=== PATIENT | female | born 1975 | race Two or more races ===

== ENCOUNTER 2025-07-10 13:25 | Inpatient (IN) | payer MEDICAID, OTHER ==
[~2025-07-10] VITALS: Ht 167.6 cm; Wt 111.2 kg
--- NOTE | 2025-07-10 13:39 | ECG ---
[facility] Test Date: 2025-07-10 Test Time: 13:34:21 Pat Name: CADENCE LIM Department: ED Room: 0246 Gender: F Hand Umbrella Tipper: Sathya : 1975 Requested By: DANY PEREZ Order Number: [id number] Reading MD: Rodolfo Ortega Measurements Intervals Perkins Rate: 83 P: 54 TN: 142 QRS: 31 QRSD: 136 T: 13 QT: 406 QTc: 477 Interpretive Statements Sinus rhythm Right bundle branch block Electronically Signed On 07-11-2025 18:23:25 PDT by Rodolfo Ortega Please click the below link to view image of tracing.
[2025-07-10 14:49] LABS: Hematocrit 49.2 % (36.0-46.0); Hemoglobin 16.4 g/dL (12.2-16.2); Mean Corpuscular Hemoglobin 31.1 pg (28.0-32.0); Mean Corpuscular Volume 93.5 fL (80.0-100.0); Nucleated Red Blood Cells % 0.1 %
[2025-07-10 14:59] LABS: Chloride 107 mmol/L (98-107); Potassium 4.5 mmol/L (3.5-5.1)
[2025-07-10 15:00] LABS: Anion Gap 11 (5-15); Calcium 9.9 mg/dL (8.7-10.4); Carbon Dioxide 28 mmol/L (20-31); Sodium 146 mmol/L (136-145)
[2025-07-10 15:05] LABS: BUN/Creatinine Ratio 9.9 (10.0-20.0); Blood Urea Nitrogen 12 mg/dL (9-23)
--- NOTE | 2025-07-10 15:13 | ED.PDOC ---
HPI Comments 50 y/o F, with no prior cardiac history presents to the ED for CC of chest pain. 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 Patient endorses, having associated symptoms of shortness of breath with nausea and vomiting. Patient comments, "I feel like the pill went down the wrong pipe". Patient denies headache, palpitations, dizziness, fatigue, or weakness. No other symptoms or modifying factors present at this time. 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 Family History Family History: Unknown Social History Smoker: Non-Smoker Alcohol: Denies ETOH Use Drugs: Denies Drug Use Lives In: Home Constitutional: denies: chills, diaphoresis, fatigue, fever, malaise, sweats, weakness, others EENTM: denies: blurred vision, double vision, ear bleeding, ear discharge, ear drainage, ear pain, ear ringing, eye pain, eye redness, hearing loss, mouth pain, mouth swelling, nasal discharge, nose bleeding, nose congestion, nose pain, photophobia, tearing, throat pain, throat swelling, voice changes, others Respiratory: reports: shortness of breath; denies: cough, hemoptysis, orthopnea, SOB at rest, SOB with excertion, stridor, wheezing, others Cardiovascular: reports: chest pain; denies: dizzy spells, diaphoresis, Dyspnea on exertion, edema, irregular heart beat, left arm pain, lightheadedness, palpitations, PND, syncope, others Gastrointestinal: reports: nausea, vomiting; denies: abdomen distended, abdominal pain, blood streaked bowels, constipated, diarrhea, dysphagia, difficulty swallowing, hematemesis, melena, poor appetite, poor fluid intake, rectal bleeding, rectal pain, others Genitourinary: denies: abnormal vagina bleeding, burning, dyspareunia, dysuria, flank pain, frequency, hematuria, incontinence, pain, , vagina discharge, urgency, others Neurological: denies: dizziness, fainting, headache, left sided numbness, left sided weakness, numbness, paresthesia, pre-existing deficit, right sided numbness, right sided weakness, seizure, speech problems, tingling, tremors, weakness, others Musculoskeletal: denies: back pain, gout, joint pain, joint swelling, muscle pain, muscle stiffness, neck pain, others Integumetry: denies: bruises, change in color, change in hair/nails, dryness, laceration, lesions, lumps, rash, wounds, others Allergic/Immunocompromised: denies: Difficulty Healing, Frequent Infections, Hives, Itching, others Hematologic/Lymphatic: denies: anemia, blood clots, easy bleeding, easy bruising, swollen glands, others Endocrine: denies: excessive hunger, excessive sweating, excessive thirst, excessive urination, flushing, intolerance to cold, intolerance to heat, unexplained weight gain, unexplained weight loss, others Psychiatric: denies: anxiety, bipolar disorder, depression, hopeless, panic disorder, schizophrenia, sleepless, suicidal, others All Other Systems: Reviewed and Negative Physical Exam General Appearance: Moderate Distress HEENT: Normal ENT Inspection, Pharynx Normal, TMs Normal Neck: Full Range of Motion, Non-Tender, Normal, Normal Inspection Respiratory: Chest Non-Tender, Lungs Clear, No Accessory Muscle Use, No Respiratory Distress, Normal Breath Sounds Cardiovascular: No Edema, No JVD, No Murmur, No Gallop, Normal Peripheral Pulses, Regular Rate/Rhythm Breast Exam: Deferred Gastrointestinal: No Organomegaly, Non Tender, No Pulsatile Mass, Normal Bowel Sounds, Soft Genitalia: Deferred Pelvic: Deferred Rectal: Deferred Extremities: No calf tenderness, Normal capillary refill, Normal inspection, Normal range of motion, Non-tender, No pedal edema Musculoskeletal : Apperance: Normal Neurologic: Alert, dish maker II-XII nml as Tested, No Motor Deficits, Normal Affect, Normal Mood, No Sensory Deficits Cerebellar Function: Normal Reflexes: Normal Skin: Dry, Normal Color, Warm Peripheral Pulses: 3+ Radial (R), 3+ Radial (L) Lymphatic: No Adenopathy Was a procedure done? Was a procedure done?: No CP Differential Dx Differential Diagnosis: A-fib, A-Flutter, Angina, Anxiety / Panic Attack, Atrial Dysrhythmia, Electrolyte Disorder Differential Diagnosis: Angina, Chest Wall Pain, Costochondritis, Esophageal reflux/spasm, Gastritis X-Ray, Labs, Meds, VS Vital Signs Date Time Temp Pulse Resp B/P (MAP) Pulse Ox O2 Delivery O2 Flow Rate FiO2 07/10/25 13:34 83 07/10/25 13:30 98.4 87 18 103/68 92 98.4 Lab Test 07/10/25 15:57 07/10/25 14:24 Range/Units Troponin I High Sensitivity < 3 L < 3 L </=34 ng/L White Blood Count 8.3 4.4-10.8 10^3/uL Red Blood Count 5.27 H 4.0-5.20 10^6/uL Hemoglobin 16.4 H 12.2-16.2 g/dL Hematocrit 49.2 H 36.0-46.0 % Mean Corpuscular Volume 93.5 80.0-100.0 fL Mean Corpuscular Hemoglobin 31.1 28.0-32.0 pg Mean Corpuscular Hemoglobin Concent 33.3 32.0-36.0 g/dL Red Cell Distribution Width 14.6 H 11.8-14.3 % Platelet Count 346 140-450 10^3/uL Mean Platelet Volume 8.3 6.9-10.8 fL Neutrophils (%) (Auto) 61.2 37.0-80.0 % Lymphocytes (%) (Auto) 27.7 10.0-50.0 % Monocytes (%) (Auto) 7.3 0.0-12.0 % Eosinophils (%) (Auto) 2.7 0.0-7.0 % Basophils (%) (Auto) 1.1 0.0-2.0 % Neutrophils # (Auto) 5.1 1.6-8.6 10 ^3/uL Lymphocytes # (Auto) 2.3 0.4-5.4 10 ^3/uL Monocytes # (Auto) 0.6 0-1.3 10 ^3/uL Eosinophils # (Auto) 0.2 0-0.8 10 ^3/uL Basophils # (Auto) 0.1 0-0.2 10 ^3/uL Nucleated Red Blood Cells 0.1 % Sodium Level 146 H 136-145 mmol/L Potassium Level 4.5 3.5-5.1 mmol/L Chloride Level 107 98-107 mmol/L Carbon Dioxide Level 28 20-31 mmol/L Anion Gap 11 5-15 Blood Urea Nitrogen 12 9-23 mg/dL Creatinine 1.21 H 0.550-1.02 mg/dL Glomerular Filtration Rate Calc 55 >90 mL/min BUN/Creatinine Ratio 9.9 L 10.0-20.0 Serum Glucose 157 H 74-106 mg/dL Calcium Level 9.9 8.7-10.4 mg/dL Patient alert. No sign of distress. Vitals stable. Blood sugar elevated. Complaining of chest pain. Sodium level elevated. Possibly esophagitis after swallowing a pill. Establish intravenous access. Was given fluids. EKG reviewed does not show any acute changes. Cardiac marker within normal limits. Blood pressure on the low side. Explained to the patient. Continue monitoring. Time of 1ST Reevaluation: 15:30 Reevaluation 1ST: Unchanged Time of 2ND Reevaluation: 17:14 Reevaluation 2ND: Improved Patient Education/Counseling: Diagnosis, Treatment Family Education/Counseling: No Family Present SEPSIS Sepsis Screen Date sepsis recognized/suspect: Jul 10, 2025 Time Sepsis recognized/suspect: 1334 Recent Procedure: No On Antibiotic Therapy: No Respiratory Rate >20: No Heart Rate >90: No Temp<36 C (96.8 F) or >38.3 C: No SBP <90 or MAP <65 mmHG: No New Acute Mental Status Change: No Is the patient on CPAP, BIPAP,: No Physician Orders Electrocardigram (07/10/25 14:38) Electrocardigram (07/10/25 16:38) Urinalysis (07/10/25 14:14) Vital Signs Date Time Temp Pulse Resp B/P (MAP) Pulse Ox O2 Delivery O2 Flow Rate FiO2 07/10/25 13:34 83 07/10/25 13:30 98.4 87 18 103/68 92 98.4 Laboratory Tests Test 07/10/25 14:24 White Blood Count 8.3 10^3/uL (4.4-10.8) Departure 1 Departure Time of Disposition: 17:15 Impression: Primary Impression: Hypotension Qualified Codes: I95.9 - Hypotension, unspecified Additional Impressions: Hypernatremia Dehydration Chest pain of unknown etiology Esophagitis Uncontrolled diabetes mellitus Qualified Codes: E13.65 - Other specified diabetes mellitus with hyperglycemia Disposition: ADMITTED INPATIENT Admit to: Med Surg Condition: Guarded Critical Care Note Critical Care Time?: No Stability Stability form required: No Heart Score Heart Score: Heart Score Response (Comments) Value History Slightly Suspicious 0 EKG N/A 0 Age 45-64 1 Risk Factors >3 or Hx ASHD 2 Troponin Normal limit 0 Total 3 I personally scribed for DANY PEREZ MD ([email or web address]) on 07/10/25 at 15:13. Electronically submitted by Valerie Deluca [email or web address]). DANY PEREZ MD Jul 10, 2025 15:13
[2025-07-10 15:25] LABS: Glucose 157 mg/dL (74-106)
[2025-07-10 20:23] LABS: Urine Protein, UAD 1+ (Negative)
[2025-07-10 20:53] LABS: Amphetamine Screen, Urine Neg (NEGATIVE); Barbiturate Scree,Urine Neg (NEGATIVE); Benzodiazephine Screen, Urine Neg (NEGATIVE); Cannabinoid Screen, Urine Neg (NEGATIVE); Cocaine Screen, Urine Neg (NEGATIVE); Opiate Scree,Urine Neg (NEGATIVE); Phencyclidine Screen, Urine Neg (NEGATIVE)
[2025-07-10] MEDS ORDERED: ACETAMINOPHEN 325 MG TAB PO PRN (21:00)
--- NOTE | 2025-07-10 21:16 | DVHHPRES ---
History of Present Illness Resident Creating Document: MAXIMILIANO WOODS History of Present Illness This is a 50-year-old female with no past medical history of relevance. Patient stated was recently screen for hypertension with ambulatory monitoring at home and was recently started on lisinopril 10 mg daily. No additional past medical history of relevance. Patient states that presented to the ED due to acute chest pain associated with shortness of breaths that started after swallowing a pill of vitamin-D. The patient described the pain as a sharp substernal chest pain that radiates to the right side of the chest and to the upper back. The patient also reports associated shortness of breaths with cough that gets worse when she is inside a place with AC. Patient also reported an episode of nausea and vomit after swallowing vitamin-D pill. Upon admission, the patient states that still has mild chest pain that has been decreasing in intensity as well as shortness of breaths which is currently on room air. Initial EKG showed a sinus rhythm with right bundle branch block. Troponins came back negative. BUN and creatinine were 12 and 1.21 respectively. Rest of labs were grossly unremarkabl e. We will order chest x-ray and BNP, we will monitor blood pressure and admit the patient for further assessment and management completely rule out PE, PNA, or TN. Past medical history: Hypertension Home medications: Lisinopril 10 mg daily Surgical history: Denies Social history: No smoking, no drugs and no alcohol Cardiovascular: HTN Past Surgical History: None Family History: None Smoke: No ALCOHOL: none Drugs: None Lives: with Family Domestic Violence: Neg Review of Systems Constitutional: No: Fever, Chills, Sweats, Weakness, Malaise, Other Eyes: No: Pain, Vision change, Conjunctivae inflammation, Eyelid inflammation, Other, Redness ENT: No: Ear pain, Ear discharge, Nose pain, Nose discharge, Nose congestion, Mouth pain, Mouth swelling, Throat pain, Throat swelling, Other Respiratory: Cough, Shortness of breath; No: Dry, SOB with excertion, Wheezing, Hemoptysis, Pleuritic Pain, Sputum, Wheezing, Other Cardiovascular: Chest Pain; No: Palpitations, Orthopnea, Paroxysmal Noc. Dyspnea, Edema, Lt Headedness, Other Gastrointestinal: No: Nausea, Vomiting, Abdominal Pain, Diarrhea, Constipation, Melena, Hematochezia, Other Genitourinary: No Dysuria, No Frequency, No Incontinence, No Hematuria, No Retention, No Other Musculoskeletal: No: other, neck pain, shoulder pain, arm pain, back pain, hand pain, leg pain, foot pain Skin: No: Rash, Lesions, Jaundice, Bruising, Other Neurological: No: Weakness, Numbness, Incoordination, Change in speech, Confusion, Seizures, Other Allergies: Coded Allergies: NO KNOWN ALLERGIES (Unverified , 07/10/25) Medications Current Medications Medications Dose Ordered Sig/Maxine Route Start Time Stop Time Status Last Admin Dose Admin Sodium Chloride 1,000 ml @ 60 mls/hr [id number] IV 07/10/25 21:00 UNV Acetaminophen 650 mg Q6HP PRN PO 07/10/25 21:00 UNV Exam Vital Signs Vital Signs Date Time Temp Pulse Resp B/P (MAP) Pulse Ox O2 Delivery O2 Flow Rate FiO2 07/10/25 20:58 98.9 100 17 101/67 (78) 100 98.9 General Appearance: Alert, Oriented X3, Cooperative, No acute distress HEENT: Atraumatic, PERRLA, EOMI, Mucous membr. moist/pink Respiratory: Clear to auscultation, Normal air movement Cardiovascular: Regular rate, Normal S1, Normal S2, No murmurs Abdominal: Normal bowel sounds, Soft, No tenderness, No hepatospenomegaly, No masses Extremities: No clubbing, No cyanosis, No edema, Normal pulses, No tenderness/swelling Skin: No rashes, No breakdown, No significant lesion Neuro: Normal gait, Normal speech, Strength at 5/5 X4 ext, Normal tone, Sensation intact, Cranial nerves 3-12 NL, Reflexes 2+ Psych/Mental Status: Mental status NL, Mood NL Labs/Xrays Labs Test 07/10/25 19:57 07/10/25 15:57 07/10/25 14:24 Range/Units Urine Color [place] H Yellow Urine Clarity Ex.turbid Clear Urine pH 5.5 5.0-9.0 Urine Specific [place] 1.034 1.001-1.035 Urine Protein 1+ H Negative Urine Ketones Trace Negative Urine Blood Negative Negative /uL Urine Nitrite Negative Negative Urine Bilirubin Negative Negative Urine Urobilinogen 2 H Negative mg/dL Urine Leukocyte Esterase 1+ Negative /uL Urine Glucose Normal Normal mg/dL Urine Opiates Screen Neg NEGATIVE Urine Fentanyl Screen Neg NEGATIVE Urine Barbiturates Screen Neg NEGATIVE Urine Phencyclidine Screen Neg NEGATIVE Urine Amphetamines Screen Neg NEGATIVE Urine Benzodiazepines Screen Neg NEGATIVE Urine Cocaine Screen Neg NEGATIVE Urine Cannabinoids Screen Neg NEGATIVE Troponin I High Sensitivity < 3 L </=34 ng/L White Blood Count 8.3 4.4-10.8 10^3/uL Red Blood Count 5.27 H 4.0-5.20 10^6/uL Hemoglobin 16.4 H 12.2-16.2 g/dL Hematocrit 49.2 H 36.0-46.0 % Mean Corpuscular Volume 93.5 80.0-100.0 fL Mean Corpuscular Hemoglobin 31.1 28.0-32.0 pg Mean Corpuscular Hemoglobin Concent 33.3 32.0-36.0 g/dL Red Cell Distribution Width 14.6 H 11.8-14.3 % Platelet Count 346 140-450 10^3/uL Mean Platelet Volume 8.3 6.9-10.8 fL Neutrophils (%) (Auto) 61.2 37.0-80.0 % Lymphocytes (%) (Auto) 27.7 10.0-50.0 % Monocytes (%) (Auto) 7.3 0.0-12.0 % Eosinophils (%) (Auto) 2.7 0.0-7.0 % Basophils (%) (Auto) 1.1 0.0-2.0 % Neutrophils # (Auto) 5.1 1.6-8.6 10 ^3/uL Lymphocytes # (Auto) 2.3 0.4-5.4 10 ^3/uL Monocytes # (Auto) 0.6 0-1.3 10 ^3/uL Eosinophils # (Auto) 0.2 0-0.8 10 ^3/uL Basophils # (Auto) 0.1 0-0.2 10 ^3/uL Nucleated Red Blood Cells 0.1 % Sodium Level 146 H 136-145 mmol/L Potassium Level 4.5 3.5-5.1 mmol/L Chloride Level 107 98-107 mmol/L Carbon Dioxide Level 28 20-31 mmol/L Anion Gap 11 5-15 Blood Urea Nitrogen 12 9-23 mg/dL Creatinine 1.21 H 0.550-1.02 mg/dL Glomerular Filtration Rate Calc 55 >90 mL/min BUN/Creatinine Ratio 9.9 L 10.0-20.0 Serum Glucose 157 H 74-106 mg/dL Calcium Level 9.9 8.7-10.4 mg/dL SEPSIS Sepsis Screen Date sepsis recognized/suspect: Jul 10, 2025 Time Sepsis recognized/suspect: 1333 Recent Procedure: No On Antibiotic Therapy: No Respiratory Rate >20: No Heart Rate >90: No Temp<36 C (96.8 F) or >38.3 C: No SBP <90 or MAP <65 mmHG: No New Acute Mental Status Change: No Is the patient on CPAP, BIPAP,: No Physician Orders Electrocardigram (07/10/25 14:38) Electrocardigram (07/10/25 16:38) Admit (07/10/25 20:52) Code Status (07/10/25:) Vital Signs .PER UNIT PROTOCOL (07/10/25 20:52) Review Orders With Adm.Md (07/10/25 20:52) Encourage Activity As Tolerate (07/10/25 20:52) Regular Diet (07/11/25 Breakfast) Sodium Chloride 0.9% (07/10/25 21:00) Acetaminophen Tablet (Tylenol Tablet) (07/10/25 21:00) Notify Md Of Changes From Base (07/10/25 20:52) Advance Directive (07/10/25 20:52) Complete Blood Count (07/11/25 04:00) Lipid Panel (07/10/25 20:52) Patient Condition (07/10/25 20:52) Allergies (07/10/25 20:52) Ambulate Every 4hours Q4H (07/10/25 20:52) Hemoglobin A1c (07/10/25 20:52) Comprehensive Metabolic Panel (07/11/25 04:00) Chest Xray 1 View (07/10/25 20:58) B-Type Natriuretic Peptide (07/10/25 20:59) D-Dimer (07/10/25 21:01) Vital Signs Date Time Temp Pulse Resp B/P (MAP) Pulse Ox O2 Delivery O2 Flow Rate FiO2 07/10/25 20:58 98.9 100 17 101/67 (78) 100 98.9 07/10/25 13:34 83 07/10/25 13:30 98.4 87 18 103/68 92 98.4 Laboratory Tests Test 07/10/25 14:24 White Blood Count 8.3 10^3/uL (4.4-10.8) Assessment/Plan Assessment/Plan Assessment/plan Acute chest pain, rule out ACS Acute hypoxic respiratory distress, rule out PE Acute chest pain likely musculoskeletal R/O Drug induced chest pain Primary hypertension EZEKIEL likely due to vasomotor nephropathy Plan -NS 0.9% 60 cc/hour -ordered BNP, D-dimer and chest x-ray -Will determine need of echo, troponins were negative and EKG showed sinus rhythm with RBBB -Toxicology was negative -monitor blood pressure closely Goals of care discussed with Patient and daughter at bedside, FULL CODE Plan discussed with Dr. Camp Plan discussed with: Patient My Orders Orders - MAXIMILIANO WOODS Procedure Category Date Status Time Admit ADMIT 07/10/25 Transmitted 20:52 Code Status CODE 07/10/25 Transmitted 20:52 Vital Signs [facility] 07/10/25 In Process 20:52 Review Orders With RAFI 07/10/25 In Process Adm. 20:52 Encourage Activity As RAFI 07/10/25 In Process Tolerate 20:52 Regular Diet DIET 07/11/25 Transmitted Breakfast Sodium Chloride 0.9% PHA 07/10/25 Logged 21:00 Acetaminophen Tablet PHA 07/10/25 Logged (Tylenol Tablet) 21:00 Notify Of Changes RAFI 07/10/25 In Process From Base 20:52 Advance Directive [facility] 07/10/25 In Process 20:52 Complete Blood Count LAB 07/11/25 Verified 04:00 Lipid Panel LAB 07/10/25 In Process 20:52 Patient Condition ORDERS 07/10/25 Transmitted 20:52 Allergies RAFI 07/10/25 In Process 20:52 Ambulate Every 4hours RAFI 07/10/25 In Process 20:52 Hemoglobin A1c LAB 07/10/25 In Process 20:52 Comprehensive LAB 07/11/25 Verified Metabolic Panel 04:00 Chest Xray 1 View XY 07/10/25 Logged 20:58 B-Type Natriuretic LAB 07/10/25 In Process Peptide 20:59 D-Dimer LAB 07/10/25 Logged 21:01 Date of Service: Jul 10, 2025 Billing Provider: FIONA CAMP MD Common Visit Codes: 30471-[id number] INP/OBS CARE (HIGH) Secondary Visit Codes: [id number] CARE PLAN 30 MINUTES MAXIMILIANO WOODS RESIDENT Jul 10, 2025 21:16
[2025-07-10 21:25] LABS: Triglycerides 141 mg/dL (< 150)
[2025-07-10 21:27] LABS: Cholesterol 139 mg/dL (< 200); HDL Cholesterol 41 mg/dL (40-59)
[2025-07-10 23:40] VITALS: O2SAT 95
[2025-07-10 23:56] VITALS: BP 113/84; PULSE 100; RESP 16; TEMP 98.1; O2SAT 95
[2025-07-11] MEDS ORDERED: IBUP1TAB5 PO (00:33)
[2025-07-11] MEDS ORDERED: PAR20T GT (00:33)
[2025-07-11] MEDS ORDERED: LISI10TA34 PO (00:33)
[2025-07-11] MEDS: SODIUM CHLORIDE 0.9% 1,000 ML IV SCH (00:55)
[2025-07-11 01:00] VITALS: BP 99/60; PULSE 88; RESP 18; TEMP 98.2; O2SAT 95
[2025-07-11 05:00] VITALS: BP 106/56; PULSE 83; RESP 17; TEMP 97.7; O2SAT 95
--- NOTE | 2025-07-11 05:52 | DVH ---
CHEST RADIOGRAPH Indication: SOB and chest pain rad to the baack Technique: Single frontal view of the chest was obtained COMPARISON: None FINDINGS: Lines and Tubes: None Lungs: Clear Pleura: No effusion. No pneumothorax. Cardiomediastinal contours: Unremarkable Bones: Unremarkable IMPRESSION: No acute disease.
[2025-07-11 07:42] LABS: Hematocrit 39.2 % (36.0-46.0); Hemoglobin 13.9 g/dL (12.2-16.2); Mean Corpuscular Hemoglobin 32.0 pg (28.0-32.0); Mean Corpuscular Volume 90.6 fL (80.0-100.0); Nucleated Red Blood Cells % 0.0 %
[2025-07-11 07:52] LABS: Albumin 3.9 g/dL (3.2-4.8); Alkaline Phosphatase 71 U/L (46-116); Anion Gap 9 (5-15); BUN/Creatinine Ratio 11.3 (10.0-20.0); Bilirubin, Total 0.6 mg/dL (0.2-1.0); Blood Urea Nitrogen 12 mg/dL (9-23); Carbon Dioxide 27 mmol/L (20-31); Glucose 100 mg/dL (74-106); Potassium 3.7 mmol/L (3.5-5.1); Sodium 144 mmol/L (136-145); Total Protein 6.3 g/dL (5.7-8.2)
[2025-07-11 07:54] LABS: Alanine Aminotransferase 61 U/L (7-40); Calcium 8.5 mg/dL (8.7-10.4); Chloride 108 mmol/L (98-107)
--- NOTE | 2025-07-11 08:21 | DVHPNRES ---
Progress Note Date Seen: Jul 11, 2025 Resident Creating Document: JYOTI GUO RESIDENT Subjective Review of Systems Maxime Diaz Is a 50-year-old female with past medical history of This is a 50-year-old female with no past medical history of relevance. Patient stated was recently screen for hypertension with ambulatory monitoring at home and was recently started on lisinopril 10 mg daily. No additional past medical history of relevance. Patient states that presented to the ED due to acute chest pain associated with shortness of breaths that started after swallowing a pill of vitamin-D. The patient described the pain as a sharp substernal chest pain that radiates to the right side of the chest and to the upper back. The patient also reports associated shortness of breaths with cough that gets worse when she is inside a place with AC. Patient also reported an episode of nausea and vomit after swallowing vitamin-D pill. Upon admission, the patient states that still has mild chest pain that has been decreasing in intensity as well as shortness of breaths which is currently on room air. Initial EKG showed a sinus rhythm with right bundle branch block. Troponins came back negative. BUN and creatinine were 12 and 1.21 respectively. Rest of labs were grossly unremarkable. We will order chest x-ray and BNP, we will monitor blood pressure and admit the patient for further assessment and management completely rule out PE, PNA, or LA. Previous hospitalization: PMHx: PSHx: Family history: Social history: Home medication: lisinopril, paroxetine Allergic history: ROS Constitutional: Denies weight loss, fever and chills. HEENT: Denies changes in vision and hearing. Respiratory: Denies shortness of breath and cough Cardiovascular: Denies chest discomfort or palpitations GI: Denies abdominal pain, nausea, vomiting and diarrhea. : Denies dysuria and urinary frequency. Musculoskeletal: Denies myalgias and joint pain Skin: Denies rash and pruritus. Neurological: Denies dizziness, headache, vision or hearing problems She was examined at bedside today. her vitals are stable, blood pressure on the lower side. She is complaining of Objective vital signs Vital Sign Date Time Temp Pulse Resp B/P (MAP) Pulse Ox O2 Delivery O2 Flow Rate FiO2 07/11/25 05:00 97.7 83 17 106/56 (73) 95 97.7 07/10/25 23:40 Room Air* 0 21 Total Intake and Output 07/10/25 07/10/25 07/11/25 15:00 23:00 07:00 Intake Total 0 ml Output Total 1 ml Balance -1 ml medications Current Medications Medications Dose Ordered Sig/Maxine Route Start Time Stop Time Status Last Admin Dose Admin Sodium Chloride 1,000 ml @ 60 mls/hr [id number] IV 07/10/25 21:00 07/11/25 00:55 60 MLS/HR Acetaminophen 650 mg Q6HP PRN PO 07/10/25 21:00 Examination General: Patient alert and oriented in person, place and time. Patient following commands. HEENT: Normocephalic, atraumatic, moist mucous membranes Respiratory/pulmonary: Clear lungs bilaterally, vesicular murmurs present in almost all lung thurman, no associated crackles or wheezes. Cardiovascular: Normal heart sounds S1 and S2 with no associated murmurs Abdomen: Abdomen nondistended, there is no pain to palpation in any of the abdominal quadrants, no palpable masses. Extremities: There is no peripheral edema present at the lower extremities. Peripheral Pulses: 3+ Radial (R). 3+ Radial (L). 3+ Dorsalis pedis (R). 3+ Dorsalis pedis(L) Skin: No rashes or pruritus, there is no sacral edema present at this time. Neurological: Intact cranial nerves with no focal neurologic deficits laboratory and microbiology Laboratory Tests 07/11/25 06:45 Test 07/11/25 06:45 Range/Units Serum Glucose 100 74-106 mg/dL Problem List/Assessment/Plan Problem List/Assessment/Plan Acute chest pain, rule out ACS Acute hypoxic respiratory distress, rule out PE Acute chest pain likely musculoskeletal R/O Drug induced chest pain Primary hypertension EZEKIEL likely due to vasomotor nephropathy Plan -NS 0.9% 60 cc/hour -ordered BNP, D-dimer and chest x-ray -Will determine need of echo, troponins were negative and EKG showed sinus rhythm with RBBB -Toxicology was negative -monitor blood pressure closely chest pain, rule out ACS troponin WNL EKG shows sinus rhythm, right bundle branch block D-dimer WNL Started on pain management, IV fluids ? PNA CXR shows right lower lobe opacities, costophrenic angles mildly blunted. diabetes mellitus A1c ordered transaminitis labs show elevated AST, ALT Testing hep B, hep C toxicology screen negative EZEKIEL, possible creatinine 1.21 on admission, baseline not available essential hypertension history of depression JYOTI GUO RESIDENT Jul 11, 2025 08:21
[2025-07-11 08:41] VITALS: BP 111/65; PULSE 78; RESP 18; TEMP 98; O2SAT 95
[2025-07-11 10:12] LABS: Hepatitis B Surface Antigen Negative (Negative)
[2025-07-11 10:33] LABS: Hepatitis C Antibody Negative (Negative)
[2025-07-11 11:17] LABS: COVID19 ANTIGEN SOFIA FIA NEGATIVE (NEGATIVE)
[2025-07-11 13:00] VITALS: BP 126/77; PULSE 72; RESP 18; TEMP 97.8; O2SAT 96
[2025-07-11] MEDS ORDERED: CALC600C PO (14:06)
[2025-07-11] MEDS ORDERED: FAMO20TA10 PO (14:06)
--- NOTE | 2025-07-11 15:20 | DVHDSRES ---
Discharge Summary Date of Admission Resident Creating Document: JYOTI GUO RESIDENT Jul 10, 2025 at 20:52 Date of Discharge: Jul 11, 2025 Wounds: No large wounds Labs/Diagnostic Data: Laboratory Results Test 07/11/25 09:15 07/11/25 06:45 07/10/25 21:12 07/10/25 19:57 Influenza Type A Antigen Negative (Negative) Influenza Type B Antigen Negative (Negative) SARS-CoV-2 Antigen (Rapid) Negative (NEGATIVE) White Blood Count 7.9 10^3/uL (4.4-10.8) Red Blood Count 4.33 10^6/uL (4.0-5.20) Hemoglobin 13.9 g/dL (12.2-16.2) Hematocrit 39.2 % (36.0-46.0) Mean Corpuscular Volume 90.6 fL (80.0-100.0) Mean Corpuscular Hemoglobin 32.0 pg (28.0-32.0) Mean Corpuscular Hemoglobin Concent 35.3 g/dL (32.0-36.0) Red Cell Distribution Width 14.8 % (11.8-14.3) Platelet Count 293 10^3/uL (140-450) Mean Platelet Volume 8.4 fL (6.9-10.8) Neutrophils (%) (Auto) 50.4 % (37.0-80.0) Lymphocytes (%) (Auto) 34.0 % (10.0-50.0) Monocytes (%) (Auto) 10.8 % (0.0-12.0) Eosinophils (%) (Auto) 4.0 % (0.0-7.0) Basophils (%) (Auto) 0.8 % (0.0-2.0) Neutrophils # (Auto) 4.0 10 ^3/uL (1.6-8.6) Lymphocytes # (Auto) 2.7 10 ^3/uL (0.4-5.4) Monocytes # (Auto) 0.9 10 ^3/uL (0-1.3) Eosinophils # (Auto) 0.3 10 ^3/uL (0-0.8) Basophils # (Auto) 0.1 10 ^3/uL (0-0.2) Nucleated Red Blood Cells 0.0 % Erythrocyte Sedimentation Rate 6 mm/hr (0-20) Sodium Level 144 mmol/L (136-145) Potassium Level 3.7 mmol/L (3.5-5.1) Chloride Level 108 mmol/L (98-107) Carbon Dioxide Level 27 mmol/L (20-31) Anion Gap 9 (5-15) Blood Urea Nitrogen 12 mg/dL (9-23) Creatinine 1.06 mg/dL (0.550-1.02) Glomerular Filtration Rate Calc 64 mL/min (>90) BUN/Creatinine Ratio 11.3 (10.0-20.0) Serum Glucose 100 mg/dL (74-106) Calcium Level 8.5 mg/dL (8.7-10.4) Total Bilirubin 0.6 mg/dL (0.2-1.0) Aspartate Amino Transferase (AST) 46 U/L (13-40) Alanine Aminotransferase (ALT) 61 U/L (7-40) Alkaline Phosphatase 71 U/L (46-116) C-Reactive Protein High Sensitivity 0.81 mg/dL (<1.0) Total Protein 6.3 g/dL (5.7-8.2) Albumin 3.9 g/dL (3.2-4.8) Hepatitis B Surface Antigen Negative (Negative) Hepatitis C Antibody Negative (Negative) D-Dimer, Quantitative 0.36 mg/L FEU (0.0-0.49) Urine Color Prosperity (Yellow) Urine Clarity Ex.turbid (Clear) Urine pH 5.5 (5.0-9.0) Urine Specific Joanna 1.034 (1.001-1.035) Urine Protein 1+ (Negative) Urine Ketones Trace (Negative) Urine Blood Negative /uL (Negative) Urine Nitrite Negative (Negative) Urine Bilirubin Negative (Negative) Urine Urobilinogen 2 mg/dL (Negative) Urine Leukocyte Esterase 1+ /uL (Negative) Urine Glucose Normal mg/dL (Normal) Urine Opiates Screen Neg (NEGATIVE) Urine Fentanyl Screen Neg (NEGATIVE) Urine Barbiturates Screen Neg (NEGATIVE) Urine Phencyclidine Screen Neg (NEGATIVE) Urine Amphetamines Screen Neg (NEGATIVE) Urine Benzodiazepines Screen Neg (NEGATIVE) Urine Cocaine Screen Neg (NEGATIVE) Urine Cannabinoids Screen Neg (NEGATIVE) Test 07/10/25 15:57 07/10/25 14:24 Troponin I High Sensitivity < 3 ng/L (</=34) Hemoglobin A1c 5.7 % A1C (<5.7) B-Type Natriuretic Peptide 30.23 pg/mL (0-100) Triglycerides Level 141 mg/dL (< 150) Cholesterol Level 139 mg/dL (< 200) LDL Cholesterol 91 mg/dL (< 100) HDL Cholesterol 41 mg/dL (40-59) Other Laboratory Tests 07/11/25 06:45 Brief Hx & Hospital Course: Maxime Diaz Is a 50-year-old female with past medical history of hypotension and depression, presented to the ER with chief complain of chest pain, shortness of breaths and cough. The pain started after swallowing a pill of vitamin-D. The patient described the pain as a sharp substernal chest pain that radiates to the right side of the chest and to the upper back, also reports associated shortness of breaths, nausea, vomiting. The cough started 4 days back has been dry, sometimes produces white phlegm. She was admitted along the lines of chest pain, to rule out ACS. She was started on pain management , IV fluids. Initial EKG showed a sinus rhythm with right bundle branch block. Troponins came back negative. D-dimer was WNL. CXR revealed no acute abnormality. Labs showed elevated AST, ALT, BUN and creatinine were 12 and 1.21 respectively. An echo was done. Viral pneumonia due to influenza, COVID-19 was ruled out. Her condition was stabilized. She is stable for discharge and will follow-up closely with primary care for urea breath test. Discharge diagnosis: Acute chest pain, rule out ACS Acute hypoxic respiratory distress, rule out PE Acute chest pain likely musculoskeletal R/O Drug induced chest pain Primary hypertension, blood pressure WNL during hospitalization EZEKIEL likely due to vasomotor nephropathy Transaminitis Essential hypertension History of depression Discharge plan: PCP follow up within 7 days DC clinic with Dr. Escoto on Friday AM. Discontinue lisinopril due to possible side effects. Discontinue antihypertensives due to lower blood pressure close follow with PCP Continue Calcium Carbonate (Antacid) (Maalox) 600 Mg Chw daily Continue Famotidine (Pepcid Tablet) 20 Mg Tb daily Operations or Procedures CHEST RADIOGRAPH Indication: SOB and chest pain rad to the baack Technique: Single frontal view of the chest was obtained COMPARISON: None FINDINGS: Lines and Tubes: None Lungs: Clear Pleura: No effusion. No pneumothorax. Cardiomediastinal contours: Unremarkable Bones: Unremarkable IMPRESSION: No acute disease. Condition at Discharge: Stable Final Diagnosis/Problems List Acute chest pain, rule out ACS Acute hypoxic respiratory distress, rule out PE Acute chest pain likely musculoskeletal R/O Drug induced chest pain Primary hypertension, blood pressure WNL during hospitalization EZEKIEL likely due to vasomotor nephropathy, resolved Transaminitis Essential hypertension History of depression/ SHIRA on SSRI Discharge Disposition: Home Discharge Instruct/Medications Diet: Cardiac 2g Na,low cholest Activity: No Restrictions, As Tolerated Follow Up/Referral: PCP follow up within 7 [address] DC clinic with Dr[address] Escoto on Friday AM. Medications: -as per EHR -Stop taking antihypertensives including -lisinopril due to side effect possible New Medications: Calcium Carbonate (Antacid) (Maalox) 600 Mg Chw 600 MG PO BID for 14 Days, TAB.CHEW Famotidine (Pepcid Tablet) 20 Mg Tb 1 TAB PO BID for 14 Days, #28 TAB 3 Refills Continued Medications: Paroxetine (Paxil Tablet) 20 Mg Tb 10 MG GT HS for 30 Days Discontinued Medications: Ibuprofen Micronized (Ibuprofen) 600 Mg Tab 600 MG PO TID, TAB Lisinopril (Lisinopril) 10 Mg Tab 10 MG PO DAILY for 30 Days, MG Care Plan: PCP follow up within 7 [address] DC clinic with [address] Escoto on Friday. Discontinue lisinopril due to possible side effects. Discontinue antihypertensives due to lower blood pressure close follow with PCP Continue Calcium Carbonate (Antacid) (Maalox) 600 Mg Chw daily Continue Famotidine (Pepcid Tablet) 20 Mg Tb daily Scheduled Calcium Carbonate (Antacid) (Maalox), 600 MG PO BID Famotidine (Pepcid Tablet), 1 TAB PO BID Paroxetine (Paxil Tablet), 10 MG GT HS, (Reported) Discontinued Medications Ibuprofen Micronized (Ibuprofen), 600 MG PO TID, (Reported) Lisinopril (Lisinopril), 10 MG PO DAILY, (Reported) Discharge Statement: "Patient was advised to return to the ER or call 911 if any headaches, dizziness, shortness of breath, chest pain, abdominal pain, bleeding, fevers, or worsening of medical condition. Patient was counseled about treatment plan, medications, possible side effects, patientverbalized understanding. All questions were answered to the best of my ability. This discharge took greater then 30 minutes in planning, reviewing documentation, counseling the patient, and discussing with other team members." ASSESSMENT ASSESSMENT Assessment #Acute chest pain, rule out ACS #Acute hypoxic respiratory distress, rule out PE #Acute chest pain likely musculoskeletal #R/O Drug induced chest pain #Primary hypertension but no further need of antihypertensive for now #EZEKIEL likely due to vasomotor nephropathy, resovled #SHIRA on SSRI Date of Service: Jul 11, 2025 Billing Provider: ABDIRIZAK ESCOTO MD Common Visit Codes: 67721-EAI/OBS DISCH DAY >30min JYOTI GUO RESIDENT Jul 11, 2025 15:20 ABDIRIZAK ESCOTO MD Jul 15, 2025 21:54
== END 2025-07-11 16:25 | disposition home or self-care (01) | DRG 198 ==
LOC: ER 13:25 → OVERFLOW 20:52 → EAST 23:38
PROVIDERS: ADMIT Student in an Organized Health Care Education/Training Program; ATTEND Student in an Organized Health Care Education/Training Program
DX: I24.9 Acute ischemic heart disease, unspecified (principal); N17.0 Acute kidney failure with tubular necrosis; E87.0 Hyperosmolality and hypernatremia; I95.9 Hypotension, unspecified; E11.9 Type 2 diabetes mellitus without complications; M94.0 Chondrocostal junction syndrome [Tietze]; R10.13 Epigastric pain; E86.0 Dehydration; K20.90 Esophagitis, unspecified without bleeding; I10 Essential (primary) hypertension; F41.1 Generalized anxiety disorder; R74.01 Elevation of levels of liver transaminase levels; F32.A Depression, unspecified; Z79.899 Other long term (current) drug therapy
CPT/HCPCS: 36415; 71045; 80048; 80053; 80061; 80307; 81003; 83036; 83880; 84484; 85025; 85379; 85652; 86141; 86803; 87340; 87426; 87804; 93005; G0378